=== PATIENT | female | born 1935 | race African-American/Black ===

== ENCOUNTER 2016-09-18 11:31 | Emergency (ER) | payer MEDICARE, MEDICAID ==
[~2016-09-18] VITALS: Ht 162.6 cm; Wt 50.0 kg
[~2016-09-18 11:31] MED LIST: AMLO2.5T45 PO; DIAZ10TA4 PO; DOCU-138 PO; LEVO500T15 PO; LOSA100T11 PO; LOSA1TAB37 PO; P20 PO; P50 PO; PHEN100C12 PO; PHEN100C4 PO; POTA10TA15 PO; PRED5TAB48 PO; PROAIR; VENTILIN
[2016-09-18] MEDS ORDERED: SODIUM CHLORIDE 0.9% 10ML VIAL ONE (11:33)
[2016-09-18] MEDS ORDERED: IOHEXOL-300 100 ML BOTTLE ONE (11:33)
[2016-09-18] MEDS ORDERED: ALBUTEROL (0.083%) 2.5MG/3ML NEB HHN STA ×2 (11:46→13:08)
[2016-09-18] MEDS ORDERED: IPRATROPIUM BROMIDE (0.02%) 0.5MG/2.5ML NEB HHN STA (11:46)
[2016-09-18] MEDS ORDERED: METHYLPREDNISOLONE SOD SUCC 125 MG/2 ML VIAL IV STA (11:46)
[2016-09-18] MEDS ORDERED: LEVOFLOXACIN 750MG PREMIX 150 ML IV STA (11:46)
[2016-09-18] MEDS ORDERED: ALBUTEROL (0.5%) 2.5MG/0.5ML NEB HHN ONE ×2 (12:03→13:19)
[2016-09-18] MEDS ORDERED: IPRATROPIUM BROMIDE (0.02%) 0.5MG/2.5ML NEB ONE (12:03)
[2016-09-18] MEDS ORDERED: ALBUTEROL (0.083%) 2.5MG/3ML NEB ONE ×2 (12:03→13:19)
[2016-09-18 12:23] LABS: BASOPHILS % 0.4 % (0.0-2.0); EOSINOPHILS % 3.7 % (0.0-5.0); HEMATOCRIT. 32.8 % (36.0-48.0); HEMOGLOBIN. 10.5 g/dL (12.0-16.0); LYMPHOCYTES % 21.4 % (20.0-50.0); MEAN CORPUSCULAR HEMOGLOBIN 30.1 pg (28.0-32.0); MEAN CORPUSCULAR HGB CONC 31.9 g/dL (31.0-37.0); MEAN CORPUSCULAR VOLUME 94.4 fL (81.0-99.0); MEAN PLATELET VOLUME 7.3 fl (7.4-10.4); MONOCYTES % 5.9 % (2.0-8.0); NEUTROPHILS % 68.6 % (40.0-76.0); PLATELET 213 x1000/uL (130-400); RED BLOOD CELL COUNT 3.48 mill/uL (4.2-5.4); RED CELL DISTRIBUTION WIDTH 14.2 % (11.6-14.6); WHITE BLOOD COUNT 6.1 x1000/uL (4.5-11.0)
[2016-09-18 12:30] LABS: INR 0.9; PROTHROMBIN TIME 9.9 sec
[2016-09-18 12:31] LABS: BG BASE EXCESS 11.6 mmol/L (-2.0-2.0); BG CARBOXYHEMOGLOBIN 0.3 % (0.5-1.5); BG FRACTION INSPIRED OXYGEN 21; BG HCO3 ACT 37.5 mmol/L (22.0-26.0); BG METHEMOGLOBIN 0.1 % (0.0-1.5); BG OXYGEN SATURATION 83.9 % (92.0-98.5); BG OXYHEMOGLOBIN 83.6 % (94.0-97.0); BG PCO2 56.2 mmHg (35.0-45.0); BG PH 7.442 (7.350-7.450); BG PO2 45.5 mmHg (75.0-100.0); BG SAMPLE SITE LEFT BRACHIAL; BG TOTAL HEMOGLOBIN 10.9 g/dL (12.0-18.0); BG VENT MODE ROOM AIR
[2016-09-18 12:31] LABS: CALCIUM 9.4 mg/dL (8.5-10.1); CHLORIDE 98 mEq/L (98-107); INDEX HEMOLYSI 1 (1-3); INDEX ICTERIC 1 (1-4); INDEX LIPEMIC 1 (1-3)
[2016-09-18 12:40] LABS: ALANINE AMINOTRANSFERASE 26 IU/L (13-61); ALBUMIN 3.3 g/dL (3.4-5.0); ANION GAP 10; CARBON DIOXIDE 38 mEq/L (21-32); NT PRO B-TYPE NATRIURETIC PEP 131 pg/mL (5-125); TROPONIN I < 0.02 ng/mL (0.00-0.04); UREA NITROGEN BLOOD 19 mg/dL (7-21); eGFR > 60 mL/min (>60)
[2016-09-18 12:44] LABS: LACTIC ACID 3.3 mmol/L (0.4-2.0)
[2016-09-18 16:22] VITALS: BP 155/71
== END 2016-09-18 17:17 | disposition left against medical advice (07) ==
LOC: ER 11:44
DX: J44.1 Chronic obstructive pulmonary disease with (acute) exacerbation (principal); Z85.118 Personal history of other malignant neoplasm of bronchus and lung; F17.200 Nicotine dependence, unspecified, uncomplicated; Z92.29 Personal history of other drug therapy
CPT/HCPCS: 36415; 36600; 71010; 71275; 80053; 80185; 82375; 82805; 83605; 83880; 84484; 85025; 85610; 87040; 93005; 94640; 96365; 96366; 96375; 99291; A4216; J1956; J2930; J7611; Q9967